=== PATIENT | female | born 1930 | race Caucasian/White ===

== ENCOUNTER 2021-01-30 00:59 | Emergency (ER) | payer OTHER ==
[~2021-01-30] VITALS: Ht 162.6 cm; Wt 60.8 kg
[2021-01-30 00:59] VITALS: BP 207/99
--- NOTE | 2021-01-30 00:59 | NUR ---
Patient laying in bed locked in lowest position, x2 side rails up for patient safety, curtains open per patient request and reports closed curtains make her anxious. See patient assessment for more information.
--- NOTE | 2021-01-30 01:10 | NUR ---
ERMD at bedside assessing patient.
--- NOTE | 2021-01-30 01:15 | NUR ---
Patient reports she needs to void, uponn standing patient reports feeling dizzy. Bedside commode provided. Assisted patient to bedside commode and patient unable to void. Assisted patient back to bed. Unable to obtain urine sample at this time.
--- NOTE | 2021-01-30 01:40 | NUR ---
Armaan De La Cruz.
--- NOTE | 2021-01-30 01:55 | NUR ---
lab at bedside.
[2021-01-30 02:08] LABS: BASOPHILS # (AUTO) 0.1 K/uL (0.00-0.22); BASOPHILS % (AUTO) 0.8 % (0.0-2.0); EOSINOPHILS # (AUTO) 0.2 K/uL (0-0.4); EOSINOPHILS % (AUTO) 1.6 % (0.0-4.0); HEMATOCRIT 35.4 % (36-48); HEMOGLOBIN 12.4 g/dL (12.0-16.0); LYMPHOCYTES # (AUTO) 1.8 K/uL (2.5-16.5); LYMPHOCYTES % (AUTO) 16.5 % (20.5-51.1); MEAN CORPUSCULAR HEMOGLOBIN 32 pg (27-31); MEAN CORPUSCULAR HGB CONC 35 g/dL (33-37); MONOCYTES # (AUTO) 0.5 K/uL (0.8-1.0); MONOCYTES % (AUTO) 4.4 % (1.7-9.3); NEUTROPHILS # (AUTO) 8.3 K/uL (1.8-7.7); NEUTROPHILS % (AUTO) 76.7 % (42.2-75.2); PLATELET COUNT (AUTO) 210 K/uL (140-450); RED BLOOD CELL COUNT(AUTO) 3.85 MIL/uL (4.20-5.40); RED CELL DISTRIBUTION WIDTH 14.1 % (11.6-13.7); WHITE BLOOD COUNT (AUTO) 10.8 K/uL (4.8-10.8)
--- NOTE | 2021-01-30 02:10 | NUR ---
Patient ambulated to the restroom with assistance.
--- NOTE | 2021-01-30 02:15 | NUR ---
ERMD aware of blood pressure.
[2021-01-30] MEDS: LOSARTAN 25 MG TAB PO STA (02:17)
[2021-01-30] MEDS: LORazepam 0.5 MG TAB PO STA (02:17)
[2021-01-30 03:01] LABS: ALBUMIN 3.8 g/dL (3.4-5.0); BILIRUBIN,DIRECT 0.2 mg/dL (0.0-0.3); THYROID STIMULATING HORMONE 2.91 uIU/mL (0.34-3.74); TOTAL BILIRUBIN 0.7 mg/dL (0.0-1.0)
--- NOTE | 2021-01-30 03:01 | NUR ---
Spoke with lab; labs still pending.
--- NOTE | 2021-01-30 03:02 | NUR ---
Patient resting in bed quietly. No acute disress. Will continue to monitor.
[2021-01-30 03:12] LABS: ANION GAP 12.9 (8-16); CARBON DIOXIDE 24.2 mmol/L (21-32); CHLORIDE 102 mmol/L (98-107); CREATININE 1.1 mg/dL (0.6-1.3); GLUCOSE 173 mg/dL (74-106); POTASSIUM 4.1 mmol/L (3.5-5.1); SODIUM SERUM 135 mmol/L (136-145); UREA NITROGEN, BLOOD 25 mg/dL (7-18)
[2021-01-30] MEDS ORDERED: METOPROLOL 25 MG TAB PO SCH (04:00)
[2021-01-30] MEDS ORDERED: METOPROLOL 5 MG/5 ML VIAL IVP SCH (04:00)
--- NOTE | 2021-01-30 04:00 | NUR ---
Patient laying supine in bed, HOB slightly elevated, eyes closed. No acute distress noted.
[2021-01-30 04:01] LABS: FREE T4 (FREE THYROXINE) 1.1 ng/dL (0.76-1.46)
[2021-01-30] MEDS ORDERED: METOPROLOL 5 MG/5 ML VIAL IVP ONE (04:30)
[2021-01-30] MEDS ORDERED: METOPROLOL 25 MG TAB PO ONE (04:30)
[2021-01-30] MEDS: METOPROLOL 5 MG/5 ML VIAL IVP ONE (04:50)
[2021-01-30] MEDS: METOPROLOL 25 MG TAB PO ONE (04:52)
--- NOTE | 2021-01-30 05:04 | NUR ---
Labs drawn and walked to lab and handed to [facility].
--- NOTE | 2021-01-30 05:42 | NUR ---
ERMD at bedside
[2021-01-30 06:58] VITALS: BP 191/71
--- NOTE | 2021-01-30 06:58 | NUR ---
Patient discharged with v/s stable. Written and verbal after care instructions given and explained. Patient verbalized understanding. Ambulatory with steady gait. All questions addressed prior to discharge. Advised to follow up with PMD.
== END 2021-01-30 06:58 | disposition home or self-care (01) ==
LOC: MED 00:59
DX: I10 Essential (primary) hypertension (principal); F41.9 Anxiety disorder, unspecified; Z88.0 Allergy status to penicillin
CPT/HCPCS: 36415; 80048; 80076; 84439; 84443; 84484; 85025; 96374; 99285; J3490; 93005